=== PATIENT | male | born 1955 | race African-American/Black ===

== ENCOUNTER → 2018-06-29 | Outpatient (CLI) | payer OTHER ==
[~2018-06-29] MED LIST: ACETAMINOPHEN325 M1 PO; ACIDOPHILUS1 EAC3 PO; AMANTADINE100 M1 PO; AMBIEN 5 MG TABL5 M1 PO; ARICEPT10 MG PO; ASA81BEC; ATENOLOL 100MG100 M2 PO; BENZTROPINE MESY2 MG PO; BENZTROPINE2 MG/2 M1 IM; CARBIDOPA-LEVO1 EAC3 PO; CARBIDOPA-LEVO1 EAC5 PO; CITRATE OF MAG296 ML PO; COLACE100 MG PO; CYMBALTA30 MG; DEPAKENE PO; DEPAKOTE 250MG250 M1 PO; DEPAKOTE ER500 MG PO; EXELON 9.5 MG9.5 MG; FINASTERIDE5 MG; FLORANEX PACKET1 GM; GUAIATUSSI100 MG/5 M PO; HALOPERIDOL 5 MG5 M1 PO; KLOR-CON 10 ER10 MEQ PO; KLOR-CON PO; LISINOPRIL2.5 MG PO; LISINOPRIL20 MG PO; LITHIUM; LITHIUM8 MEQ/5 ML PO; LOPRESSOR25 PO; LORAZEPAM 2MG2 MG/M1 IM; MELATONIN3 MG PO; MOM; MYLANTA 12 OZ355 M1 PO; NAMENDA 10 MG T10 MG PO; NEPHROCAPS SOFT1 CAP PO; NORCO 5-325 TA1 EACH PO; PHENERGAN50 MG/1 M1 IJ; PREVALITE PACKE1 PKT PG; QUESTRAN LIGHT P4 GM; REMERON15 M1 PO; REMERON30 MG PO; REQUIP0.5 MG; SEROQUEL XR150 MG; TOBREX5 ML; TOBREX5 ML OP; TOPROL XL25 MG PO; TOPROL XL50 MG PO; TRANSDERM-SCO1 PATC1; TRAZODONE HCL100 MG PO; ULTRAM 50MG TAB50 MG PO; VITAMIN D250000 UNIT PO
== END ==
LOC: SPEECH 10:55 → RAD 10:55
DX: R13.12 Dysphagia, oropharyngeal phase (principal); R13.11 Dysphagia, oral phase; K21.9 Gastro-esophageal reflux disease without esophagitis; I10 Essential (primary) hypertension; G20 Parkinson's disease; F41.9 Anxiety disorder, unspecified

== ENCOUNTER 2021-06-25 22:44 | Emergency (ER) | payer OTHER ==
[~2021-06-25] VITALS: Ht 182.9 cm; Wt 95.3 kg
[2021-06-25] MEDS ORDERED: BISMATROL525 MG/15 PO (23:07)
[2021-06-25] MEDS ORDERED: CLONIDINE HCL0.1 MG PO (23:09)
[2021-06-25 23:57] LABS: ABSOLUTE NEUTROPHILS 3.3 thou/uL (1.4-8.2); BASOPHILS 0.7 % (0.0-2.0); EOSINOPHILS 3.9 % (0.0-3.0); HEMATOCRIT 34.7 % (42.0-52.0); HEMOGLOBIN 11.5 gm/dL (14.0-18.0); LYMPHOCYTES 29.7 % (24.0-44.0); MCH 30.3 pg (26.0-34.0); MCV 91.7 fL (80.0-100.0); MONOCYTES 8.4 % (1.0-8.0); PLATELET COUNT 163 thou/uL (150-400); POLYS 57.3 % (36.0-66.0); RBC 3.78 mil/uL (4.50-6.00); RDW 14.8 % (10.5-14.5); WBC 5.7 thou/uL (4.0-11.0)
[2021-06-26 00:02] LABS: ANION GAP 6 mmol/L (7-16); BUN 23 mg/dL (7-18); CALCIUM 8.7 mg/dL (8.5-10.1); CHLORIDE 111 mmol/L (98-107); CO2 30 mmol/L (21-32); CREATININE 1.3 mg/dL (0.7-1.3); GLUCOSE 113 mg/dL (74-106); POTASSIUM 3.7 mmol/L (3.5-5.1); SODIUM 147 mmol/L (136-145)
[2021-06-26 00:08] LABS: ALBUMIN 3.3 g/dL (3.4-5.0); SGOT 15 U/L (15-37); SGPT < 6 U/L (16-63); TOTAL BILIRUBIN 0.5 mg/dL (0.2-1.0); TOTAL PROTEIN 7.3 g/dL (6.4-8.2)
[2021-06-26 02:08] LABS: URINE BILIRUBIN NEGATIVE (Negative); URINE BLOOD NEGATIVE (Negative); URINE CLARITY CLEAR; URINE COLOR YELLOW; URINE GLUCOSE-RANDOM* NEGATIVE (Negative); URINE KETONES NEGATIVE (Negative); URINE LEUKOCYTES-REFLEX NEGATIVE (Negative); URINE NITRITE-REFLEX NEGATIVE (Negative); URINE PROTEIN (DIPSTICK) NEGATIVE (Negative); URINE UROBILINOGEN 0.2 E.U./dl (0.2-1.0)
[2021-06-26 02:17] LABS: AMP/METHAMP Negative (Negative); BARBITURATES Negative (Negative); BENZODIAZEPINES Negative (Negative); COCAINE Negative (Negative); METHADONE Negative (Negative); OPIATES Negative (Negative); PCP Negative (Negative)
[2021-06-26 03:19] VITALS: BP 126/79
--- NOTE | 2021-06-26 07:31 | EKG ---
[address] [address] [place] [address] ELECTROCARDIOGRAM REPORT Name: MARIANA FLOREZIE Marcelle Room #: [facility]#: [id number] Admission: 06/25/21 Attend Phys: Discharge: 06/26/21 Date of : 59 Report #: [id number] [facility] ED Test Date: 2021-06-25 Test Time: 23:39:53 Pat Name: JEREMIAH FLOREZ Department: Room: Gender: Career Services Manager: nivia : 1955 Requested By: Halle Castillo Order Number: [id number] MD: Mario Kowalski Measurements Intervals [place] Rate: 59 P: 40 IA: 184 QRS: -23 QRSD: 97 T: -6 QT: 409 QTc: 406 Interpretive Statements Sinus rhythm Left ventricular hypertrophy Borderline T abnormalities, inferior leads Compared to ECG 12/17/2014 09:06:55 T-wave abnormality now present Sinus bradycardia no longer present Electronically Signed On 06-26-2021 7:31:24 CDT by Mario Kowalski [email or web address] <ELECTRONICALLY SIGNED> By: Mario Kowalski MD, [facility] 06/26/21 0731 [id number] Mario Kowalski MD, [facility] /EPI
== END 2021-06-26 03:20 ==
LOC: ER 22:44
PROVIDERS: Emergency Medicine
DX: R45.1 Restlessness and agitation (principal); F41.9 Anxiety disorder, unspecified; I10 Essential (primary) hypertension; K21.9 Gastro-esophageal reflux disease without esophagitis; G20 Parkinson's disease; Z79.2 Long term (current) use of antibiotics; Z79.82 Long term (current) use of aspirin; Z79.899 Other long term (current) drug therapy; Z87.891 Personal history of nicotine dependence